=== PATIENT | male | born 1960 | race African-American/Black ===

== ENCOUNTER 2018-09-20 20:18 | Emergency (ER) | payer SELFPAY ==
--- NOTE | 2018-09-20 21:15 | ER Document Report ---
ED General - General Chief Complaint: Abdominal Pain Stated Complaint: ABDOMINAL PAIN Time Seen by Provider: 09/20/18 21:09 Mode of Arrival: Ambulatory Information source: Patient Notes: 58-year-old male presents emergency department with complaints of lower abdominal pain that has been intermittent in nature for the last week. Patient denies any alleviating or exacerbating factors. He states that the pain will just come on. He describes it as a sharp and stabbing sensation in the lower abdomen. No radiation of the pain. He denies any nausea, vomiting, diarrhea, constipation, testicular pain, penile discharge, dysuria, hematuria. Patient denies any surgeries on his abdomen. TRAVEL OUTSIDE OF THE [place] IN LAST 30 DAYS: No - HPI Onset: Last week Onset/Duration: Gradual, Intermittent Quality of pain: Fullness, Sharp, Stabbing Severity: Mild Associated symptoms: None Exacerbated by: Denies Relieved by: Denies Similar symptoms previously: No Recently seen / treated by doctor: No - Related Data Allergies/Adverse Reactions: Penicillins Allergy (Verified 09/20/18 20:21) Past Medical History - General Information source: Patient - Social History Smoking Status: Never Smoker Family History: Reviewed & Not Pertinent Review of Systems - Review of Systems Constitutional: No symptoms reported EENT: No symptoms reported Cardiovascular: No symptoms reported Respiratory: No symptoms reported Gastrointestinal: Abdominal pain Genitourinary: No symptoms reported Male Genitourinary: No symptoms reported Musculoskeletal: No symptoms reported Skin: No symptoms reported Hematologic/Lymphatic: No symptoms reported Neurological/Psychological: No symptoms reported -: Yes All other systems reviewed and negative Physical Exam - Vital signs Vitals: Temp Pulse Resp BP Pulse Ox 97.9 F 64 15 151/73 H 100 09/20/18 20:25 09/20/18 20:25 09/20/18 20:25 09/20/18 20:25 09/20/18 20:25 - Notes Notes: PHYSICAL EXAMINATION: GENERAL: Well-appearing, well-nourished and in no acute distress. HEAD: Atraumatic, normocephalic. EYES: Pupils equal round and reactive to light, extraocular movements intact, sclera anicteric, conjunctiva are normal. ENT: Nares patent, oropharynx clear without exudates. Moist mucous membranes. NECK: Normal range of motion, supple without lymphadenopathy LUNGS: Breath sounds clear to auscultation bilaterally and equal. No wheezes rales or rhonchi. HEART: Regular rate and rhythm without murmurs ABDOMEN: Soft, tenderness to palpation in the right lower quadrant and left lower quadrants. No rebound or guarding. Normal active bowel sounds. Musculoskeletal: Normal range of motion, no pitting or edema. No cyanosis. NEUROLOGICAL: Cranial nerves grossly intact. Normal speech, normal gait. Normal sensory, motor exams PSYCH: Normal mood, normal affect. SKIN: Warm, Dry, normal turgor, no rashes or lesions noted. Course - Re-evaluation Re-evalutation: 09/20/18 23:13 Lipase is minimally elevated. Patient does not have any tenderness to palpation in the left upper quadrant or epigastric areas. CT abdomen pelvis was done as he is having pain in his lower abdomen. No acute process identified on the CT. I instructed patient to take [id number] medication as needed for symptom relief, to follow-up with his primary care physician this week, and to return to the emergency department for any worsening symptoms. Patient is agreeable to plan of care. - Vital Signs Vital signs: Temp Pulse Resp BP Pulse Ox 97.9 F 64 15 151/73 H 100 09/20/18 20:25 09/20/18 20:25 09/20/18 20:25 09/20/18 20:25 09/20/18 20:25 - Laboratory Result Diagrams: 09/20/18 21:41 09/20/18 21:41 Laboratory results interpreted by me: 09/20/18 21:41 Total Protein 8.7 H Albumin 5.1 H Lipase 336.9 H Discharge - Discharge Clinical Impression: Abdominal pain Qualifiers: Abdominal location: unspecified location Qualified Code(s): R10.9 - Unspecified abdominal pain Condition: Good Disposition: HOME, SELF-CARE Instructions: Abdominal Pain ([facility]) Referrals: MARIAMA ANDREA [NO LOCAL MD] - Follow up as needed ZULLY HOOK DO [NO LOCAL MD] - Follow up as needed
[2018-09-20 22:01] LABS: ABSOLUTE BASOPHILS # (AUTO) 0.1 10^3/uL (0.0-0.2); ABSOLUTE EOSINOPHILS # (AUTO) 0.1 10^3/uL (0.0-0.6); ABSOLUTE LYMPHOCYTES (AUTO) 2.8 10^3/uL (0.5-4.7); ABSOLUTE MONOCYTES (AUTO) 0.8 10^3/uL (0.1-1.4); ABSOLUTE NEUT (AUTO) 3.3 10^3/uL (1.7-8.2); BASOPHILS % (AUTO) 0.9 % (0-2); EOSINOPHILS % (AUTO) 1.6 % (0-6); HEMATOCRIT 42.5 % (37.9-51.0); HEMOGLOBIN 14.1 g/dL (13.5-17.0); LYMPHOCYTES % (AUTO) 38.8 % (13-45); MEAN CORPUSCULAR HEMOGLOBIN 28.7 pg (27.0-33.4); MEAN CORPUSCULAR HGB CONC 33.3 g/dL (32.0-36.0); MEAN CORPUSCULAR VOLUME 86 fl (80-97); MONOCYTES % (AUTO) 11.8 % (3-13); PLATELET COUNT 338 10^3/uL (150-450); RED BLOOD COUNT 4.92 10^6/uL (4.35-5.55); SEGMENTED NEUTROPHILS % (AUTO) 46.9 % (42-78); TOTAL CELLS COUNTED % (AUTO) 100 %; WHITE BLOOD COUNT 7.1 10^3/uL (4.0-10.5)
[2018-09-20 22:06] LABS: APPEARANCE,URINE SLIGHTLY-CLOUDY; BILIRUBIN,URINE NEGATIVE (NEGATIVE); COLOR,URINE YELLOW; GLUCOSE, URINE NEGATIVE (NEGATIVE); KETONES,URINE NEGATIVE (NEGATIVE); LEUKOCYTE ESTERASE,URINE NEGATIVE (NEGATIVE); NITRITE,URINE NEGATIVE (NEGATIVE); PROTEIN,URINE NEGATIVE (NEGATIVE); URINE SPECIFIC GRAVITY 1.021; UROBILINOGEN,URINE NEGATIVE mg/dL (<2.0)
[2018-09-20 22:14] LABS: ALANINE AMINOTRANSFERASE 33 U/L (21-72); ALBUMIN 5.1 g/dL (3.5-5.0); ALKALINE PHOSPHATASE 125 U/L (38-126); ANION GAP 10 (5-19); ASPARTATE AMINO TRANSFERASE 40 U/L (17-59); BILIRUBIN,DIRECT 0.2 mg/dL (0.0-0.4); BILIRUBIN,TOTAL 0.3 mg/dL (0.2-1.3); BLOOD UREA NITROGEN 15 mg/dL (7-20); CALCIUM 9.9 mg/dL (8.4-10.2); CARBON DIOXIDE 28 mmol/L (22-30); CHLORIDE 103 mmol/L (98-107); GLUCOSE 101 mg/dL (75-110); LIPASE 336.9 U/L (23-300); POTASSIUM 4.1 mmol/L (3.6-5.0); SODIUM 140.8 mmol/L (137-145); TOTAL PROTEIN 8.7 g/dL (6.3-8.2)
--- NOTE | 2018-09-20 23:12 | RADIOLOGY REPORT (SQ) ---
EXAM DESCRIPTION: CT ABDOMEN PELVIS WITH IV CONTRAST COMPLETED DATE/TME: 09/20/2018 21:12 CLINICAL HISTORY: 58 years, Male, Lower abdominal pain This exam was performed according to our departmental dose-optimization program which includes automated exposure control, adjustment of the mA and/or kVp according to patient size and/or use of iterative reconstruction technique where applicable. FINDINGS: Visualized lung bases are within normal limits. Liver, spleen, pancreas, gallbladder, adrenal glands and kidneys are within normal limits. No hydronephrosis or biliary dilatation. Small subcentimeter left renal cyst. No dilated loops of bowel to suggest obstruction. Mild amount of stool in the colon. The appendix is normal. Mild scattered colonic diverticulosis without CT evidence for acute diverticulitis. No free fluid or free air. The bladder is unremarkable. Prostate is mildly enlarged, measuring 5.4 x 5.4 cm. No free fluid or free air. No abdominal or pelvic lymphadenopathy. Abdominal aorta demonstrates mild atherosclerotic changes without aneurysm. IMPRESSION: No acute disease. No evidence for acute appendicitis.
[2018-09-20 23:43] VITALS: BP 143/77
== END 2018-09-20 23:40 | disposition home or self-care (01) ==
LOC: ER 20:18
DX: R10.30 Lower abdominal pain, unspecified (principal); R10.813 Right lower quadrant abdominal tenderness; R10.814 Left lower quadrant abdominal tenderness; Z88.0 Allergy status to penicillin
CPT/HCPCS: 36415; 74177; 80053; 81001; 83690; 85025; 99284